=== PATIENT | female | born 1980 | race Caucasian/White ===

== ENCOUNTER → 2021-06-10 | Outpatient (CLI) | payer BC, MEDICAID ==
[2014-02-14 12:36] VITALS: BP 110/70
[~2021-06-10] MED LIST: BACL10TA PO; FEVE1POW MC; IBUP-1060 PO; IBUP200T58 PO; MELA3TAB4 PO; OMEP20CA16 PO; TIZA4CAP3 PO
--- NOTE | 2021-06-10 11:06 | RAD ---
EXAM: Bilateral digital screening mammogram with tomosynthesis; bilateral breast sonogram. HISTORY: 41-year-old female presents with a palpable left breast lump. TECHNIQUE: Full-field digital craniocaudal and mediolateral oblique 2D and 3D tomosynthesis images of both breasts are obtained for evaluation. Spot compression images of both breasts and true lateral v iews of both breasts are also obtained. Computer aided detection was applied. Sonographic imaging of both breasts targeted to sites of mammographic asymmetry and the region of palpable concern within th e left breast was also performed. COMPARISON: 03/10/2014 BREAST PARENCHYMAL DENSITY: Level C - Heterogeneously dense. FINDINGS: There are asymmetries within the posterior upper outer quadrant of the right breast and med ial aspects of both breasts at mid depth. These are likely more conspicuous compared to the prior exa m due to differences in imaging technique. These change configuration with spot compression imaging, favoring islands of benign fibroglandular tissue. No convincing architectural distortion is seen. The re is no suspicious calcification. There is no suspicious mammographic finding at the site of palpabl e concern within the upper outer quadrant of the left breast. Sonographic imaging of both breasts targeted to sites of mammographic asymmetry demonstrates no suspi cious finding. There is an island of benign-appearing fibrocystic tissue at the 11:00 position of the left breast 5 cm from the nipple. There is no suspicious finding at the site of palpable concern wit hin the left posterior upper outer quadrant. There is a 4 mm complicated cyst or benign fibrous cysti c lesion within the 8:00 retroareolar position of the left breast. No suspicious axillary lymph node is seen. IMPRESSION: 1. Suspected island of benign fibrocystic tissue within the 11:00 position of the left breast 5 cm th e nipple and 4 mm complicated cyst or benign fibrocystic lesion at the 8:00 retroareolar position of the left breast. 2. Suspected islands of benign breast parenchyma within the posterior upper outer quadrant of the rig ht breast and medial aspects of both breasts at mid to posterior depth. There is no suspicious sonogr aphic correlate for these areas of mammographic asymmetry. These are likely more conspicuous due to d ifferences in imaging technique compared to the prior exam. 3. BI-RADS Category 3: Probably benign finding(s). Precautionary short-term follow up with a lateral diagnostic mammogram in 6 months is recommended to confirm mammographic stability. If your mammogram demonstrates that you have dense breast tissue, which could hide abnormalities, and if you have other risk factors for breast cancer that have been identified, you might benefit from s upplemental screening tests that may be suggested by your ordering physician. Dense breast tissue, i n and of itself, is a relatively common condition. This information is not provided to cause undue c oncern, but rather to raise your awareness and to promote discussion with your physician regarding th e presence of other risk factors, in addition to dense breast tissue. A report of your mammography re sults will be sent to you and your physician. You should contact your physician if you have any ques tions or concerns regarding this report. Mammography is a sensitive method for finding small breast cancers, but it does not detect them all a nd is not a substitute for careful clinical examination. A negative mammogram does not negate a clin ically suspicious finding and should not result in delay in biopsying a clinically suspicious abnorma lity. PQRS compliance statement - Patient information was entered into a reminder system with a target due date for the next mammogram. "Our facility is accredited by the [employer] Mammography [employer]." Electronically signed by: Arabella Woo MD (06/10/2021 11:03 AM) [id number]
== END ==
LOC: MAMMO 09:44
PROVIDERS: ATTEND Obstetrics & Gynecology
DX: R92.8 Other abnormal and inconclusive findings on diagnostic imaging of breast (principal)
CPT/HCPCS: 76641; 77066; G0279; 77062